=== PATIENT | female | born 1965 | race Two or more races ===

== ENCOUNTER 2019-06-08 12:44 | Outpatient (CLI) | payer OTHER ==
[2019-06-08 14:02] LABS: ALANINE AMINOTRANSFERASE 35 U/L (12-78); ALBUMIN 3.9 g/dL (3.4-5.0); ANION GAP 5 mmol/L (5-15); CALCIUM 10.3 mg/dL (8.5-10.1); CHLORIDE 111 mmol/L (98-107)
[2019-06-08 14:05] LABS: ALKALINE PHOSPHATASE 117 U/L (45-117); BILIRUBIN,TOTAL 0.3 mg/dL (0.2-1.0); CREATININE 0.65 mg/dL (0.55-1.02); TOTAL PROTEIN 7.3 g/dL (6.4-8.2)
[2019-06-08] MEDS ORDERED: OMEP20TA62 PO (15:34)
[2019-06-08] MEDS ORDERED: CYAN-27 PO (15:34)
[2019-06-08] MEDS ORDERED: CLON2TAB9 PO (15:34)
[2019-06-08] MEDS ORDERED: Estradiol TP (15:34)
[2019-06-08] MEDS ORDERED: LOSA50TA14 PO (15:34)
[2019-06-08] MEDS ORDERED: Collagen PO (15:34)
== END 2019-06-08 23:59 | disposition home or self-care (01) ==
LOC: STAR 12:44
PROVIDERS: ATTEND Surgery
DX: Z01.818 Encounter for other preprocedural examination (principal); Z88.0 Allergy status to penicillin
CPT/HCPCS: 36415; 80053

== ENCOUNTER 2019-06-14 05:52 | Day surgery (SDC) | payer OTHER ==
[~2019-06-14] VITALS: Ht 157.5 cm; Wt 58.0 kg
[~2019-06-14 05:52] MED LIST: CLON2TAB9 PO; CYAN-27 PO; Collagen PO; Estradiol TP; LOSA50TA14 PO; OMEP20TA62 PO
[2019-06-14] MEDS ORDERED: LACTATED RINGERS 1,000 ML IV SCH (06:06)
[2019-06-14 06:09] VITALS: BP 125/75
[2019-06-14] MEDS ORDERED: FENTANYL PF 250 MCG/5ML ONE (07:15)
[2019-06-14] MEDS ORDERED: MIDAZOLAM 1 MG/ML, 2ML ONE ×3 (07:15→07:18)
[2019-06-14] MEDS ORDERED: APREPITANT 40 MG CAPSULE ONE ×2 (07:18→07:21)
[2019-06-14] MEDS ORDERED: METOPROLOL 1 MG/ML, 5ML ONE (07:24)
[2019-06-14] MEDS ORDERED: ONDANSETRON 2MG/ML, 2ML ONE (08:03)
[2019-06-14] MEDS ORDERED: DEXAMETHASONE 4 MG/ML, 1ML ONE (08:03)
[2019-06-14] MEDS ORDERED: ROCURONIUM 10MG/ML,5ML ONE (08:03)
[2019-06-14] MEDS ORDERED: PROPOFOL 10 MG/ML, 20ML ONE (08:03)
[2019-06-14] MEDS ORDERED: SUCCINYLCHOLINE 20 MG/ML, 10ML ONE (08:03)
[2019-06-14] MEDS ORDERED: PHENYLEPHRINE 10 MG/ML ONE (08:03)
[2019-06-14] MEDS ORDERED: LIDOCAINE-MPF 2% ,5ML ONE (08:03)
[2019-06-14] MEDS ORDERED: MEPERIDINE/PF 100 MG/ML ONE (08:21)
[2019-06-14] MEDS: FENTANYL PF 100 MCG/2ML IV PRN ×3 (08:46→09:21)
[2019-06-14] MEDS ORDERED: OXYcodone 5 MG/5 ML ORAL.SOL UDC ONE ×2 (08:51→09:18)
[2019-06-14] MEDS ORDERED: ACETAMINOPHEN 650 MG/20.3 ML UDC ONE (08:51)
[2019-06-14] MEDS ORDERED: FENTANYL PF 100 MCG/2ML ONE ×2 (08:51→09:18)
[2019-06-14] MEDS ORDERED: MEPERIDINE/PF 25MG/ML,1ML IVPush PRN (09:00)
[2019-06-14] MEDS ORDERED: LABETALOL 5MG/ML, 20ML IV PRN (09:00)
[2019-06-14] MEDS ORDERED: OXYcodone 5 MG/5 ML ORAL.SOL UDC PO PRN (09:00)
[2019-06-14] MEDS ORDERED: HYDROmorphone 2 MG/ML, 1ML IVPush PRN ×2 (09:00)
[2019-06-14] MEDS ORDERED: ACETAMINOPHEN 325 MG TABLET PO PRN (09:00)
[2019-06-14] MEDS ORDERED: PROMETHAZINE 25 MG/ML, 1ML IV PRN (09:00)
[2019-06-14] MEDS: OXYcodone 5 MG/5 ML ORAL.SOL UDC PO PRN ×2 (09:02→09:19)
[2019-06-14] MEDS ORDERED: PROPOFOL 50 ML ONE (09:18)
[2019-06-14 09:29] LABS: 10MIN %DROP IOPTH 76 %; 5MIN %DROP IOPTH 66 %; IOPTH BASELINE 193 pg/mL
== END 2019-06-14 15:10 | disposition home or self-care (01) ==
LOC: OUT 05:52
PROVIDERS: ATTEND Surgery
DX: E21.0 Primary hyperparathyroidism (principal); I10 Essential (primary) hypertension; E78.5 Hyperlipidemia, unspecified; Z72.89 Other problems related to lifestyle; Z79.899 Other long term (current) drug therapy; Z88.0 Allergy status to penicillin; Z98.51 Tubal ligation status; Z82.49 Family history of ischemic heart disease and other diseases of the circulatory system; Z83.3 Family history of diabetes mellitus
CPT/HCPCS: 36415; 60500; 83970; 88305; 88331; C1760; J0330; J1100; J2175; J2250; J2370; J2405; J2704; J3010; J7120; J8501